=== PATIENT | female | born 1985 | race Two or more races ===

== ENCOUNTER 2022-09-04 12:39 | Emergency (ER) | payer MEDICAID ==
[2022-09-04] MEDS ORDERED: Ondansetron 4 MG Tab.DIS PO ONE (13:17)
[2022-09-04] MEDS ORDERED: Ketorolac 60 MG/2 ML SDV IM ONE (14:58)
== END 2022-09-04 15:40 | disposition home or self-care (01) ==
LOC: JD.ED 12:39
DX: N12 Tubulo-interstitial nephritis, not specified as acute or chronic (principal); Z86.16 Personal history of COVID-19; Z72.0 Tobacco use
CPT/HCPCS: 36415; 80053; 81001; 85025; 86140; 87086; 87088; 87186; 96372; 99284; A9270; J1885; 99283